=== PATIENT | female | born 1990 | race African-American/Black ===

== ENCOUNTER 2021-07-25 12:18 | Inpatient (IN) | payer OTHER, SELFPAY ==
[2021-07-25] MEDS ORDERED: NS w/ Oxytocin 30 units 500 ML ONE ×2 (12:34→13:32)
[2021-07-25] MEDS ORDERED: Lidocaine 1% (PF) 30 ML VIAL ONE ×2 (12:42→12:54)
[2021-07-25] MEDS ORDERED: Morphine 4 MG/ML VIAL ONE (12:55)
[2021-07-25] MEDS ORDERED: Butorphanol Tartrate 1 MG/ML VIAL SLOW IVP PRN (13:27)
[2021-07-25] MEDS ORDERED: Ondansetron PF 4 MG/2 ML Vial IVP PRN ×2 (13:27→13:32)
[2021-07-25] MEDS ORDERED: Promethazine HCl 25 MG/ML VIAL IM PRN ×2 (13:27→13:32)
[2021-07-25] MEDS ORDERED: hydrALAZINE 20 MG/ML VIAL SLOW IVP PRN ×2 (13:27→13:32)
[2021-07-25] MEDS ORDERED: Lactated Ringer's 1,000 ML IV SCH (13:30)
[2021-07-25] MEDS ORDERED: Bisacodyl 10 MG SUPP PR PRN (13:32)
[2021-07-25] MEDS ORDERED: Boostrix 0.5 ML (Tdap) VIAL IM ONE (13:32)
[2021-07-25] MEDS ORDERED: Zolpidem Tartrate 5 MG TAB PO PRN (13:32)
[2021-07-25] MEDS ORDERED: Measles/Mumps/Rubella 10 MCG/0.5 ML VIAL SC ONE (13:32)
[2021-07-25] MEDS ORDERED: Milk Of Magnesia 30 ML UDCUP PO PRN (13:32)
[2021-07-25] MEDS ORDERED: HYDROcodone/Acetaminophen 5/325 mg Tablet PO PRN (13:32)
[2021-07-25] MEDS ORDERED: Benzocaine-Menthol 82.5 ML CAN TOP PRN (13:32)
[2021-07-25] MEDS ORDERED: Misoprostol 200 MCG TAB VAG PRN (13:32)
[2021-07-25] MEDS ORDERED: Methylergonovine 0.2 MG/ML VIAL IM PRN (13:32)
[2021-07-25] MEDS ORDERED: Preparation H Ointment 28 GM TUBE PR PRN (13:32)
[2021-07-25] MEDS ORDERED: Varicella virus, LIVE 0.5 ML VIAL SC ONE (13:32)
[2021-07-25] MEDS ORDERED: Lanolin Ointment 7 GM TUBE TOP PRN (13:32)
[2021-07-25] MEDS ORDERED: NS w/ Oxytocin 30 units 500 ML IV SCH (13:45)
[2021-07-25 14:36] LABS: Hemoglobin 6.5 g/dL (12.0-15.5); Mean Corpuscular HGB CONC 30.8 g/dL (32.0-36.0); Mean Corpuscular Hemoglobin 21.8 pg (27.0-33.0); Mean Corpuscular Volume 70.8 fl (81.6-98.3); Mean Platelet Volume 11.5 fl (7.4-10.4); Platelet Count 160 10x3/uL (150-450); RBC Distribution Width 14.6 % (11.5-14.5); Red Blood Cell (RBC) Count 2.98 10x6/uL (3.90-5.03); White Blood Cell (WBC) Count 19.8 10x3/uL (3.5-10.5)
[2021-07-25 14:57] VITALS: BMI 35.2
[2021-07-25 15:14] LABS: HIV (1/2) Antibody/Antigen Non-Reactive (NonReactive); HIV 1/2 INDEX 0.07 S/CO (<1.00); Hep B Surf Ag Non-Reactive S/CO (NonReactive); Syphilis Antibody Nonreactive (Nonreactive); Syphilis Antibody Index 0.04 S/CO (<1.00 Non-Reactive)
[2021-07-25 15:30] LABS: HBSAg Index 0.16 S/CO (0-0.99)
[2021-07-25 15:31] LABS: Amphetamine Not Detected (NotDetected); Barbiturates Screen Not Detected (NotDetected); Benzodiazepine Screen Not Detected (NotDetected); Cocaine Metabolite Screen Not Detected (NotDetected); Methadone Not Detected (NotDetected); Methamphetamine Not Detected (NotDetected); Opiate Screen Detected (NotDetected); Oxycodone Screen Not Detected (NotDetected); Phencyclidine (PCP) Not Detected (NotDetected); THC/Cannabinoid Screen Not Detected (NotDetected); Tricyclic Screen Not Detected (NotDetected)
[2021-07-25] MEDS: Ibuprofen 800 MG TAB PO SCH ×2 (17:46→21:45)
[2021-07-25] MEDS: Ferrous Sulfate 325 MG TAB PO SCH (17:47)
[2021-07-25 18:13] LABS: SARS-CoV-2 NAA Rapid Test Not Detected (NotDetected)
[2021-07-25] MEDS: lamoTRIgine 100 MG TAB PO SCH (21:43)
[2021-07-25] MEDS: Docusate 100 MG CAP PO SCH (21:43)
[2021-07-25] MEDS: Aripiprazole 10 MG TAB PO SCH (21:44)
[2021-07-25 22:47] LABS: Hemoglobin 6.7 g/dL (12.0-15.5)
[2021-07-26] MEDS: Ibuprofen 800 MG TAB PO SCH ×3 (06:10→20:05)
[2021-07-26] MEDS: Docusate 100 MG CAP PO SCH ×2 (08:40→20:06)
[2021-07-26] MEDS: Ferrous Sulfate 325 MG TAB PO SCH ×2 (08:41→17:47)
[2021-07-26 08:56] LABS: Mean Corpuscular HGB CONC 32.9 g/dL (32.0-36.0); Mean Corpuscular Hemoglobin 24.3 pg (27.0-33.0); Mean Platelet Volume 11.1 fl (7.4-10.4); Platelet Count 140 10x3/uL (150-450); RBC Distribution Width 18.5 % (11.5-14.5); Red Blood Cell (RBC) Count 2.88 10x6/uL (3.90-5.03); White Blood Cell (WBC) Count 15.6 10x3/uL (3.5-10.5)
[2021-07-26] MEDS: HYDROcodone/Acetaminophen 5/325 mg Tablet PO PRN ×2 (08:57→17:45)
[2021-07-26] MEDS: Escitalopram Oxalate 10 mg Tablet PO SCH (17:41)
[2021-07-26] MEDS: Aripiprazole 10 MG TAB PO SCH (20:05)
[2021-07-26] MEDS: lamoTRIgine 100 MG TAB PO SCH (20:06)
[2021-07-27] MEDS: Ibuprofen 800 MG TAB PO SCH (05:53)
[2021-07-27 07:50] VITALS: BP 141/88; TEMP 98.1
[2021-07-27] MEDS: Escitalopram Oxalate 10 mg Tablet PO SCH (09:56)
[2021-07-27] MEDS: Ferrous Sulfate 325 MG TAB PO SCH (09:58)
[2021-07-27] MEDS: Docusate 100 MG CAP PO SCH (09:58)
== END 2021-07-27 12:45 | disposition home or self-care (01) | DRG 769 ==
LOC: CSHLD/OP 12:18 → CSHLD 12:19 → CSHPED 18:00
PROVIDERS: ADMIT Obstetrics & Gynecology; ATTEND Obstetrics & Gynecology
PROC: 0KQM0ZZ Repair Perineum Muscle, Open Approach (ICD-10-PCS; principal; 2021-07-25)
PROC: 30233N1 Transfusion of Nonautologous Red Blood Cells into Peripheral Vein, Percutaneous Approach (ICD-10-PCS; 2021-07-25)
DX: Z39.0 Encounter for care and examination of mother immediately after delivery (principal); D62 Acute posthemorrhagic anemia; O70.9 Perineal laceration during delivery, unspecified; O99.03 Anemia complicating the puerperium; O99.345 Other mental disorders complicating the puerperium; O99.335 Smoking (tobacco) complicating the puerperium; O99.315 Alcohol use complicating the puerperium; Z20.822 Contact with and (suspected) exposure to COVID-19; Z72.89 Other problems related to lifestyle; F17.210 Nicotine dependence, cigarettes, uncomplicated; O34.211 Maternal care for low transverse scar from previous cesarean delivery; F32.A Depression, unspecified
CPT/HCPCS: 36415; 36430; 80306; 80307; 85027; 86780; 86850; 86900; 86901; 87340; 87389; 99285; J2001; J2270; J2590; P9016; U0002